=== PATIENT | male | born 1990 ===

== ENCOUNTER 2017-12-19 18:16 | Emergency (ER) | payer BC, SELFPAY ==
[2017-12-19 18:25] VITALS: BP 128/84; PULSE 88; RESP 16; TEMP 36.4; O2SAT 100; BMI 22.7
--- NOTE | 2017-12-19 18:46 | ED.MALEGU ---
HPI - Male Genitourinary General Chief complaint: Urogenital-Male Stated complaint: ABD PAIN Time Seen by Provider: 12/19/17 18:46 Source: patient Mode of arrival: ambulatory Limitations: no limitations History of Present Illness HPI Narrative: This is a 27-year-old male who comes to the emergency department with complaint of testicular pain. Patient states he was riding in his car when all the sudden he had sudden onset of pain. He describes it as bilaterally and radiating up into his lower abdomen. He states they do seem slightly swollen on both sides. He has never had similar symptoms to this. He has not done any new or different activities. He has not had any urinary frequency, penile discharge or dysuria. Patient denies any flank pain. He denies any fevers, no nausea or vomiting, no GI symptoms. Patient states he does not have any other medical issues. No prior surgeries. Denies any allergies to medications. Patient offered pain medications and request tylenol. Patient states onset about 3pm. Related Data Home Medications Medication Instructions Recorded Confirmed No Known Home Medications 12/19/17 12/19/17 Allergies Allergy/AdvReac Type Severity Reaction Status Date / Time No Known Drug Allergies Allergy Verified 12/19/17 18:32 Review of Systems Review of Systems All systems reviewed & are unremarkable except as noted in HPI and below Constitutional Denies fever(s) Gastrointestinal Gastrointestinal: Reports abdominal pain (lower pelvic pain.), Denies constipation, Denies diarrhea, Denies nausea and Denies vomiting Genitourinary Denies hematuria, Denies difficulty urinating, Denies dysuria, Denies flank pain, Denies penile discharge, Reports scrotal swelling (mild), Denies testicular mass, Reports testicular pain (b/l), Denies urinary frequency, Denies urinary hesitancy and Denies urinary urgency Musculoskeletal Reports back pain (mild, usual from work) Integumentary/Breasts Denies lesions and Denies rash [facility] Social History Smoking Status: Never smoker Exam Narrative Exam Narrative: GENERAL: Alert and oriented x three, well nourished, well appearing male HEENT: Head normocephalic, atraumatic, EOMI, pupils reactive, face symmetric, moist mucous membranes NECK: Supple, full range of motion CARDIOVASCULAR: Regular rate and rhythm without murmurs, rubs or gallops. RESPIRATORY: Breath sounds equal bilaterally, no wheezes rales or rhonchi. ABDOMEN: Soft, nontender. Normoactive bowel sounds all 4 quadrants. No guarding or rebound, rigidity, no mass : No CVA tenderness. Male: normal external examination, no penile discharge or lesions, testicles tender bilaterally, mild swelling bilaterally, left testicle is very slightly elevated comparison to right, cremasteric reflex intact, no inguinal hernias noted. EXTREMITIES: Normal range of motion, no clubbing or edema. Neurovascularly intact NEUROLOGICAL: Cranial nerves II through XII grossly intact. Moving all extremities SKIN: Warm, dry, no petechiae, no rashes or lesions. Initial Vital Signs Initial Vital Signs: Vital Signs Temperature 97.5 F L 12/19/17 18:25 Pulse Rate 88 12/19/17 18:25 Respiratory Rate 16 12/19/17 18:25 Blood Pressure 128/84 12/19/17 18:25 Pulse Oximetry 100 12/19/17 18:25 Procedures [facility] [place] Name of Procedure: Manual De-torsion Side (if applicable): left Location: Testicle Time out performed: Yes Technique/Description of procedure performed: Testicle was grasped and rotated outward about 270 degree's. Patient had moderate improvement of symptoms. Patient tolerated procedure: Well Complications: none Additional Comments: Patient was offered IV and pain medications but defers. Patient and I did discuss that this may not resolve torsion completely and still needs urological evaluation and treatment. Course Orders Ordered: ED Orders 12/19/17 19:37 Basic Metabolic Panel Stat Discontinued Medications Acetaminophen (Tylenol) 975 mg PO NOW ONE Stop: 12/19/17 18:48 Last Admin: 12/19/17 19:05 Dose: 975 mg Reevaluation(s) Reevaluation #1: recheck after ultrasound, pain is about the same. Discussed patient lives in [place] and we do not have urology here. Patient and I discussed and he would be open to returning to [place] although this is a time sensitive situation. Patient is aware. Reevaluation #2: Recheck pain decreased to 5/10. discussed plan and patient comfortable with plan. Consultations Consultation #1: Dr. Torres at [facility] Reassuring that there is some flow. Patient needs to be seen but they are boarding 30 in ED. Asked for us to call back if cannot find another place. Consultation #2: Dr. Adams of [facility] urology. They are not supposed to see patients based on recent situation with [facility]. Does not accept. Discussed patient is at 6 hour window and has decreased flow on ultrasound. Consultation #3: [facility] contacted. Dr. Quinteros accepts from urology. Plan to go through ED as patient is going to take private auto. Sending with disk with imaging Patient aware of plan for possible surgery but evaluation by urology, and then final decision. Dr. Raman at [facility] accepts through the ER. Patient also sent with labs and paperwork. Vital Signs - 8 hr 12/19/17 21:38 Temperature 98.3 F Pulse Rate 83 Respiratory Rate 14 Blood Pressure 125/76 Pulse Oximetry 99 MDM - Male Genitourinary Lab Data Result diagrams: 12/19/17 19:07 12/19/17 19:37 Lab Results 12/19/17 12/19/17 12/19/17 Range/Units 19:01 19:07 19:37 WBC 5.7 (4.5-11.0) X10^3/uL RBC 4.76 (4.5-5.9) X10^6/uL Hgb 14.4 (13.5-17.5) g/dL Hct 42.8 (41-53) % MCV 89.9 (80-100) fL MCH 30.2 (26-34) PG MCHC 33.6 (30-36) % RDW 12.9 (11.6-14.8) % Plt Count 248 (150-400) X10^3/uL Neut % (Auto) 65.2 (50-75) % Lymph % (Auto) 22.7 L (25-40) % [place] % (Auto) 10.1 (3-14) % Eos % (Auto) 1.5 L (2-4) % Baso % (Auto) 0.5 (0-2) % Neut # (Auto) 3700 (3936-2056) /uL Sodium 142 (137-145) mmol/L Potassium 3.8 (3.4-5.1) mmol/L Chloride 101 (98-107) mmol/L Carbon Dioxide 29 (22-32) mmol/L BUN 20 (9-20) mg/dL Creatinine 1.10 (0.66-1.25) mg/dL Estimated GFR > 60.0 (>60) mL/min BUN/Creatinine Ratio 18.2 (6-22) Glucose 97 (70-100) mg/dL Calcium 9.2 (8.4-10.2) mg/dL Ur Chlamydia DNA (PCR) Not detected N gonorrhoeae DNA (PCR) Not detected Urine Dip Bedside Urine Glucose Negative Bedside Urine Bilirubin - Negative Bedside Urine Ketone ++ 40 Urine Specific [place] 1.030 Bedside Urine Occult Blood - Negative Bedside Urine pH 6.0 Bedside Urine Protein - Negative Bedside Urine Urobilinogen - Negative Bedside Urine Nitrite - Negative Bedside Urine Leukocytes - Negative Esterase Imaging Data testicular ultrasound: Radiologist's impression: [address] [address] Ultrasound Report Signed Patient: [facility]#: [id number] : 1990Acct:[id number] Age/Sex: 27 / MDate of Service: 12/19/17 Loc: ED Accession Number: [id number] Procedure: US scrotum Ordering Provider: Milli Olson D.O. PROCEDURE: US SCROTUM INDICATIONS: SUDDEN ONSET BILATERAL TESTICULAR PAIN TECHNIQUE: Real-time scanning was performed of the scrotum and testicles, with image documentation. Color and pulse Doppler interrogation was performed of both testicles. COMPARISON: None. FINDINGS: Right: Testicle is normal in size at 4.2 x 2.5 x 3.5 cm, and homogenous in echotexture. Epididymis is normal in overall size and morphology. Multiple small cysts are noted in the right epididymis. No hydrocele or varicoceles. Overlying scrotal skin is normal in thickness. Left: Testicle is normal in size at 3.5 x 2.6 x 2.8 cm, and homogeneous in echotexture. Epididymis is normal in overall size and morphology. No hydrocele or varicoceles. Overlying scrotal skin is normal in thickness. Doppler: Color and pulse Doppler demonstrate diminished vascularity in the left testicle concerning for testicular torsion.. IMPRESSION: Diminished vascularity a involving left testicle concerning for testicular torsion. Dictated by: Gloria Mazariegos MD, PhD on 12/19/2017 at 19:47 Approved by: Gloria Mazariegos MD, PhD on 12/19/2017 at 19:49 Discharge Plan Departure Patient Disposition: [facility] Clinical Impression: Testicular/scrotal pain Discharge Date/Time: 12/19/17 21:42 Interventions: ED Discharge Assessment Last Done: 12/19/17 21:38 Activity Restrictions/Additional Instructions: Go directly to the Emergency Department at [facility]. Let them know Dr. Quinteros is expecting you from urology to evaluate you this evening. Prescriptions: No Action No Known Home Medications RF: 0
[2017-12-19] MEDS: ACETAMINOPHEN 325 MG TABLET 975 MG PO (19:05)
[2017-12-19 19:13] LABS: Add Manual Diff / Slide Review NO; Basophils Percent Auto 0.5 % (0-2); Eosinophils Percent Auto 1.5 % (2-4); Hematocrit 42.8 % (41-53); Hemoglobin 14.4 g/dL (13.5-17.5); Lymphocytes Percent Auto 22.7 % (25-40); Mean Corpuscular HGB Conc 33.6 % (30-36); Mean Corpuscular Hemoglobin 30.2 PG (26-34); Mean Corpuscular Volume 89.9 fL (80-100); Monocytes Percent Auto 10.1 % (3-14); Neutrophils Absolute Auto 3700 /uL (3000-5900); Neutrophils Percent Auto 65.2 % (50-75); Platelet Count 248 X10^3/uL (150-400); Red Blood Cell Count 4.76 X10^6/uL (4.5-5.9); Red Cell Distribution Width 12.9 % (11.6-14.8); White Blood Cell Count 5.7 X10^3/uL (4.5-11.0)
[2017-12-19 19:45] LABS: BUN Creatinine Ratio 18.2 (6-22); Blood Urea Nitrogen 20 mg/dL (9-20); Calcium 9.2 mg/dL (8.4-10.2); Carbon Dioxide 29 mmol/L (22-32); Chloride 101 mmol/L (98-107); Estimated Glomerular Filt Rate > 60.0 mL/min (>60); Glucose 97 mg/dL (70-100); HEMOLYSIS < 15 (0-50); Potassium 3.8 mmol/L (3.4-5.1); Sodium 142 mmol/L (137-145)
[2017-12-19 20:32] LABS: Urine N gonorrhoeae NOT DETECTED
[2017-12-19 21:24] LABS: Urine Chlamydia NOT DETECTED
[2017-12-19 21:38] VITALS: BP 125/76; PULSE 83; RESP 14; TEMP 36.8; O2SAT 99
== END 2017-12-19 21:42 | disposition short-term general hospital (02) ==
PROVIDERS: Emergency Provider Emergency Medicine
DX: N50.812 Left testicular pain (principal)
CPT/HCPCS: 76870; 80048; 81003; 85025; 87491; 87591; 99283; 99284